=== PATIENT | male | born 1995 | race Caucasian/White ===

== ENCOUNTER → 2020-10-06 | Outpatient (CLI) | payer SELFPAY ==
--- NOTE | 2020-10-06 14:49 | Diagnostic Imaging Report ---
PROCEDURE: US Scrotum. TECHNIQUE: Multiple real-time grayscale images were obtained over the scrotum in various projections bilaterally. INDICATION: Testicular pain, right greater. FINDINGS: Right testicle measures 5.6 x 2.4 x 3.1 cm and the left testicle measures 3.0 x 1.6 x 2.1 cm. Testes show fairly homogeneous echotexture. No discrete testicular mass is seen. There is blood flow to both testes. There does appear to be slightly increased vascularity to the right testicle compared to the left. Right epididymis does contain a 1.7 x 1.4 x 2.1 cm cyst. Left epididymis is unremarkable. No hydrocele or varicocele is detected. IMPRESSION: 1. Large right epididymal cyst or spermatocele. 2. No evidence of testicular mass or vascular compromise. There is some slight increased vascularity to the right testicle compared to the left, which can be seen with mild orchitis. No other abnormalities are seen. Dictated by: Dictated on workstation # [id number]
== END ==
LOC: RAD 13:36
PROVIDERS: ATTEND Nurse Practitioner Primary Care
DX: N50.3 Cyst of epididymis (principal); N50.1 Vascular disorders of male genital organs
CPT/HCPCS: 76870